=== PATIENT | male | born 1965 | race Caucasian/White ===

== ENCOUNTER 2020-04-05 13:32 | Outpatient (REF) | payer SELFPAY | END 2020-04-05 13:33 | disposition home or self-care (01) | LOC: HO.HAP 13:32 | PROVIDERS: Visit Provider Internal Medicine Endocrinology, Diabetes & Metabolism | DX: Z46.1 Encounter for fitting and adjustment of hearing aid (principal); H90.3 Sensorineural hearing loss, bilateral | CPT/HCPCS: V5267 ==

== ENCOUNTER 2020-04-28 15:10 | Outpatient (REF) | payer SELFPAY | END 2020-04-28 15:11 | disposition home or self-care (01) | LOC: HO.HAP 15:10 | PROVIDERS: Visit Provider Internal Medicine Endocrinology, Diabetes & Metabolism | DX: Z13.89 Encounter for screening for other disorder (principal) ==

== ENCOUNTER 2021-10-31 10:43 | Outpatient (REF) | payer SELFPAY | END 2021-10-31 10:44 | disposition home or self-care (01) | LOC: HO.HAP 10:43 | PROVIDERS: Visit Provider Internal Medicine Endocrinology, Diabetes & Metabolism | DX: Z13.89 Encounter for screening for other disorder (principal) ==

== ENCOUNTER 2021-11-23 14:29 | Outpatient (REF) | payer SELFPAY | END 2021-11-23 14:30 | disposition home or self-care (01) | LOC: HO.HAP 14:29 | PROVIDERS: Visit Provider Internal Medicine Endocrinology, Diabetes & Metabolism | DX: Z13.89 Encounter for screening for other disorder (principal) ==

== ENCOUNTER 2021-12-16 07:54 | Outpatient (REF) | payer SELFPAY | END 2021-12-16 07:55 | disposition home or self-care (01) | LOC: HO.HAP 07:54 | PROVIDERS: Visit Provider Internal Medicine Endocrinology, Diabetes & Metabolism | DX: Z46.1 Encounter for fitting and adjustment of hearing aid (principal); H90.3 Sensorineural hearing loss, bilateral | CPT/HCPCS: V5014 ==

== ENCOUNTER 2022-06-02 08:30 | Outpatient (REF) | payer OTHER, SELFPAY | END 2022-06-02 08:31 | disposition home or self-care (01) | LOC: HO.SH 08:30 | PROVIDERS: Visit Provider Physician Assistant Medical | DX: Z01.118 Encounter for examination of ears and hearing with other abnormal findings (principal); H90.3 Sensorineural hearing loss, bilateral | CPT/HCPCS: 92557; 92567 ==

== ENCOUNTER 2023-05-16 14:14 | Outpatient (REF) | payer SELFPAY ==
--- NOTE | 2023-05-17 08:57 | MHC.AU.HA3 ---
Hearing Instrument Follow-Up- Binaural Date of Visit: 05/16/22 Linux System Administrator Used: Right Ear: Make, Model, Color, Serial Number: Shamika CROS [id number] SN: [id number] Color: Sand Beige Hand Gluer And Slicer Repair Warranty: 05/12/2026 Hand Gluer And Slicer Loss and Damage Warranty: 05/12/2026 Battery Size: 13 Director Of Sustainability/Slim Tube: Earmold/Dome/CShell/SlimTip:CROS Tip w/ size 2 wire SN: [id number] Warranty: 05/14/2023 Type of Wax Guard: N/A Left Ear: Make, Model, Color, Serial Number: Shamika Andrewseo [id number] SN: [id number] Color: Sand Beige Hand Gluer And Slicer Repair Warranty: 05/15/2026 Hand Gluer And Slicer Loss and Damage Warranty: 05/15/2026 Battery Size: 13 Earmold/Dome/CShell/SlimTip: cShell with size 2 wire/UP hospice spiritual care coordinator SN: [id number] Warranty: 05/14/2023 Type of Wax Guard: Cerustop Follow-Up Summary: Papito returned to re-attempt fitting with his remade c-shell, which was changed to a P hospice spiritual care coordinator so it could be made smaller. He still found this size unacceptable; discussed that his original c-shell was an S hospice spiritual care coordinator which will not give sufficient amplification, and given that he reports difficulty hearing with his older aids, reducing power further is not advised. He will not wear the c-shell as it is currently made. Called Shamika with Papito in the room to discuss this issue and see if they had any other recommendations based on scan on file etc. We will try an M hospice spiritual care coordinator, Papito agreed that he would not want to go down to an S and understands the limitations an M might have. Sent for remake, will call to reschedule 1 hour fitting once it arrives. Recommendations: Recommendations: Schedule 1 hour HAF once c-shell remake arrives. Diagnosis Code(s): Primary Diagnosis: H90.3 Bilateral Sensorineural Hearing Loss Signature: Provider: Libby Bee, [facility]
== END 2023-05-16 14:15 | disposition home or self-care (01) ==
LOC: HO.HAP 14:14
PROVIDERS: Visit Provider Internal Medicine Endocrinology, Diabetes & Metabolism
DX: Z13.89 Encounter for screening for other disorder (principal)

== ENCOUNTER 2023-06-14 14:19 | Outpatient (REF) | payer SELFPAY ==
--- NOTE | 2023-06-15 08:07 | MHC.AU.HA3 ---
Hearing Instrument Follow-Up- Binaural Date of Visit: 06/14/23 Right Ear: Make, Model, Color, Serial Number: Shamika CROS P-[id number] SN: [id number] Color: Sand Beige Trust Clerk Repair Warranty: 05/12/2026 Trust Clerk Loss and Damage Warranty: 05/12/2026 [facility] Service Plan: 05/31/2024 Battery Size: 13 Earmold/Dome/CShell/SlimTip:CROS Tip w/ size 2 wire SN: [id number] Warranty: 05/14/2023 Type of Wax Guard: N/A Dispensed By: [facility] Date of Fittin05/31/23 Left Ear: Make, Model, Color, Serial Number: Shamika Audeo [id number] SN: [id number] Color: Sand Beige Trust Clerk Repair Warranty: 05/15/2026 Trust Clerk Loss and Damage Warranty: 05/15/2026 [facility] Service Plan: 05/31/2024 Battery Size: 13 Earmold/Dome/CShell/SlimTip: cShell with size 2 wire/M floor supervisor SN: [id number] Warranty: 11/22/2023 Type of Wax Guard: Cerustop Dispensed By: [facility] Date of Fittin05/31/23 Follow-Up Summary: Reports the new aid/ CROS are working better for him than his old pair. Molds are comfortable. Has used VC as needed. No specific concerns needing adjustment at this time. Recommendations: Recommendations: Hearing instrument follow-up or maintenance as needed. Please contact our clinic with any questions or concerns. Diagnosis Code(s): Primary Diagnosis: H90.3 Bilateral Sensorineural Hearing Loss Signature: Provider: Sandrine Sanchez, CCC-A
== END 2023-06-14 14:20 | disposition home or self-care (01) ==
LOC: HO.HAP 14:19
PROVIDERS: PCP Physician Assistant Medical; Visit Provider Physician Assistant Medical
DX: Z13.89 Encounter for screening for other disorder (principal)

== ENCOUNTER 2024-07-18 10:50 | Outpatient (REF) | payer SELFPAY ==
--- OUTSIDE RECORDS SUMMARY | 2024-07-18 12:27 | XMS_ITS | Clinical Summary ---
Author Organization [facility] [address] [place] [address] [place] [phone] Phone Care Team Providers Care Renovator Machine Operator Name Role Phone Lawrence Gasca Primary Care Provider [phone] Allergies No known active allergies Medications losartan (COZAAR) 25 mg tablet Take 1 tablet (25 mg total) by mouth 1 (one) time each day. 06/12/2023 Active allopurinoL (ZYLOPRIM) 100 mg tablet Take 1 tablet (100 mg total) by mouth 1 (one) time each day. 06/12/2023 Active simvastatin (ZOCOR) 40 mg tablet Take 1 Tablet by mouth at bedtime. 06/12/2023 Active omeprazole (PriLOSEC) [address] capsule Take 1 capsule (20 mg total) by mouth 1 (one) time each day. 06/12/2023 Active Active Problems Problem Noted Date Diagnosed Date Erythrocytosis 07/17/2018 Overview (03/19/2024): Dr. 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 Erosive esophagitis 03/18/2014 Overview (03/19/2024): EGD and bx 03/17/2014. ? GERD; ? EOE---see path report. Dysplastic nevi 05/25/2011 Overview (03/19/2024): Dysplastic nevi 05/18 right lower back & middle of upper back (moderate atypia) Mixed hyperlipidemia 09/05/2007 Hearing loss 04/26/2007 Overview (03/19/2024): Chronic hearing loss on right, sudden hearing loss left, 04/2007 Hypertension 04/26/2007 Lung mass 04/26/2007 Overview (03/19/2024): 5-mm noncalcified right lower lobe nodule, others smaller nodules Renal cyst 04/26/2007 Overview (03/19/2024): 8 x 7 cm right renal cyst, CT, 01/31/2006 Retinal vein occlusion 04/26/2007 Overview (03/19/2024): Right branch retinal vein occlusion, 12/2005 Encounters Date Type Department Care Team Description 07/09/2024 2:45 PM EST Office Visit Adult Medicine [address] [phone] Sharad Kaur MD Primary hypertension (Primary Dx); Need for prophylactic vaccination and inoculation against influenza; Vitreous floaters of right eye; History of retinal vein occlusion 07/08/2024 Telephone Adult Medicine [address] [phone] Lawrence Gasca PA Hypertension 07/07/2024 Telephone Adult Medicine [address] [phone] Lawrence Gasca PA ED Follow-up 07/04/2024 Telephone Adult Medicine [address] [phone] Lawrence Gasca PA Hypertension; heachache 05/19/2024 1:01 PM EST - 05/19/2024 11:59 PM EST Hospital Encounter Radiology Department - [address] [phone] Routine general medical examination at a health care facility; Diplopia; Vertigo; Screening for malignant neoplasm of colon; Poe's esophagus with dysplasia; Gout, unspecified cause, unspecified chronicity, unspecified site; Primary hypertension; Mixed hyperlipidemia Discharge Disposition: Home or Self Care 04/22/2024 3:00 PM EST Office Visit [address] [phone] Lawrence Gasca PA Routine general medical examination at a health care facility (Primary Dx); COVID-19; Diplopia; Vertigo; Screening for malignant neoplasm of colon; Poe's esophagus with dysplasia; Gout, unspecified cause, unspecified chronicity, unspecified site; Primary hypertension; Mixed hyperlipidemia from Last 3 Months Immunizations Name Administration Dates Next Due Influenza Quadravalent, MDCK , 0.5ml, preservative free (Flucelvax) 6mo and older 06/12/2023,03/03/2022,04/21/2021,2019,05/10/2018 Influenza trivalent, 0.5mL, preservative free (Fluarix; FluLaval; Fluzone) ages 6mo and older (Afluria) 3 years and older 02/18/2016 Influenza trivalent, MDCK, 0 .5mL, preservative free (Flucelvax) 6mo and older 07/09/2024 Td Tetanus diptheria (Tdvax) 7yo and older 04/21/2021,10/04/2007 Surgical History Surgery Date Site/Laterality Comments ESOPHAGOGASTRODUODENOSCOPY 03/17/2014 PROCEDURE: IA EGD TRANSORAL BIOPSY SINGLE/MULTIPLE; COMMENT: esophageal bx: Increased eosinophils, erosion, Poe's without dysplasia. Medical History Medical History Date Comments Hearing loss 04/26/2007 DX:Hearing loss; COMMENT: Chronic hearing loss on right, sudden hearing loss left, 04/2007 Hypertension 04/26/2007 DX:Hypertension Retinal vein occlusion (CMS/HCC) 04/26/2007 DX:Retinal vein occlusion; COMMENT: Right branch retinal vein occlusion, 12/2005 Historical Medical DX 04/26/2007 DX:Pulmona ry nodule; COMMENT: 5-mm noncalcified right lower lobe nodule, others smaller nodules Renal cyst 04/26/2007 DX:Renal cyst; C OMMENT: 8 x 7 cm right renal cyst, CT, 01/31/2006 Poe's esophagus 03/18/2014 DX:Poe's esophagus; COMMENT: EGD and bx 03/17/2014, no dysplasia. Erosive esophagitis 03/18/2014 DX:Erosive e sophagitis; COMMENT: EGD and bx 03/17/2014. Family History Medical History Relation Name Comments Heart attack Father age 45 Hypertension Mother Relation Name Status Comments Father Mother Social History Tobacco Use Types Packs/Day Years Used Date Smoking Tobacco: Never Smokeless Tobacco: Never Tobacco Cessation:Counseling Given: Not Answered Alcohol Use Standard Drinks/Week Comments No 0 (1 standard drink = 0.6 oz pur e alcohol) none Housing Instability Answer Date Recorde d Are you worried that in the next 2 months you may not have stable housing? No 07/09/2024 Food Access & Nutrition Answer Date Rec orded Do you have access to a vari ety of food including fruits and vegetables? Yes 07/09/2024 Health Literacy Answer Date Recorded How often do you need to hav e someone help you when you read instructions, pamphlets, or other written material from your doctor or pharmacy? Never 07/09/2024 Caregiver: How often do you need to have someone help you when you read instructions, pamphlets, or other written material from your doctor or pharmacy? Not on file 07/09/2024 Financial Risk Answer Date Recorded How hard is it for you to pa y for the very basics like food, housing, medical care, and air conditioning / heating? Not very hard 07/09/2024 Transportation Answer Date Recorded Has the lack of transportati on kept you from meetings, work, or from getting things needed for daily living? No Has the lack of transportati on kept you from medical appointments or from getting medications? No 07/09/2024 Social Isolation Answer Date Recorded How often do you feel lonely or isolated from th ose around you? Never 07/09/2024 Food Risk Answer Date Recorded Within the past 12 months we worried whether our food would run out before we got money to buy more. Never true 07/09/2024 Within the past 12 months th e food we bought just didn't last and we didn't have money to get more. Never true 07/09/2024 Dependent Care Answer Date Recorded Do you need help finding or paying for care for your loved ones. For example, children's entertainer or elderly care for an older adult? No 07/09/2024 Education Answer Date Recorded Do you think completing more education or training, like finishing a GED, going to college, or learning a trade, would be helpful for you? No 07/09/2024 Employment and Income Answer Date Recor ded During the last four weeks, have you been actively looking for work? No 07/09/2024 Living Situation Answer Date Recorded What is your living situation? 0 07/09/2024 Sex and Gender Information Value Date Recorded Sex Assigned at Not on file Legal Sex Male 8:14 AM EST Gender Identity Not on file Sexual Orientation Not on file Obstetrics History Last Filed Vital Signs Vital Sign Reading Time Taken Comments Blood Pressure 134/73 07/09/2024 2:40 PM EST Pulse 75 07/09/2024 2:40 PM EST Temperature 36.4 ??C (97.5 ??F) 07/09/2024 2:40 PM ES T Respiratory Rate 16 07/09/2024 2:40 PM EST Oxygen Saturation - - Inhaled Oxygen Concentration - - Weight 77.1 kg (170 lb) 07/09/2024 2:40 PM EST Height 167.6 cm (5' 6 ) 07/09/2024 2:40 PM EST Body Mass Index 27.44 07/09/2024 2:40 PM EST Plan of Treatment Health Maintenance Due Date Last Done Comments Pneumococcal Vaccine: 50+ Years (1 of 2 - PCV) 12/13/1982 Pneumococcal Vaccine: Pediatrics (0 to 5 Years) and At-Risk Patients (6 to 64 Years) (1 of 2 - PCV) 12/13/1982 Zoster Vaccines (1 of 2) 12/13/1982 HIV Screening 04/15/2022 Hepatitis C Screening 04/15/2022 COVID-19 Vaccine ( season) 2024 06/20/2021, 09/25/2020, 09/04/2020 Hypertension/CHF/CAD Annual BMP Blood Test 05/30/2024 05/30/2023 Depression Screening 07/09/2025 07/09/2024 Social Influencers of Health Screening 07/09/2025 07/09/2024 Colorectal Cancer Screening: FIT-DNA (Cologuard) 05/19/2027 05/19/2024 Cholesterol Screening (Lipid Panel) 05/30/2028 05/30/2023 DTaP,Tdap,and Td Vaccines (3 - Td or Tdap) 04/21/2031 04/21/2021, 10/04/2007 RSV Immunization Patients 60+ Years Old (1 - 1-dose 75+ series) 12/13/2038 Influenza Vaccine Completed 07/09/2024, , 03/03/2022, Additional history exists HIB Vaccines Aged Out No longer eligi ble based on patient's age to complete this topic HPV Vaccines Aged Out No longer eligi ble based on patient's age to complete this topic Hepatitis A Vaccines Aged Out No long er eligible based on patient's age to complete this topic Hepatitis B Vaccines Aged Out No long er eligible based on patient's age to complete this topic IPV Vaccines Aged Out No longer eligi ble based on patient's age to complete this topic MMR Vaccines Aged Out No longer eligi ble based on patient's age to complete this topic Meningococcal ACWY Vaccine Aged Out N o longer eligible based on patient's age to complete this topic Meningococcal B Vacine Aged Out No lo nger eligible based on patient's age to complete this topic RSV Immunization Patients Under 20 months Aged Out No longer eligible based on patient's age to complete this topic Varicella Vaccines Aged Out No longer eligible based on patient's age to complete this topic Procedures Procedure Name Priority Date/Time Associated Diagnosis Comments MR BRAIN WO AND W CONTRAST Routine 05/19/2024 2:08 PM EST Routine general medical examination at a health care facility Diplopia Vertigo Screening for malignant neoplasm of colon Poe's esophagus with dysplasia Gout, unspecified cause, unspecified chronicity, unspecified site Primary hypertension Mixed hyperlipidemia LAB COLOGUARD?? COLON CANCER SCREEN Routine 05/19/2024 9:50 AM EST Routine general medical examination at a health care facility Diplopia Vertigo Screening for malignant neoplasm of colon Poe's esophagus with dysplasia Gout, unspecified cause, unspecified chronicity, unspecified site Primary hypertension Mixed hyperlipidemia POC INFLUENZA A/B Routine 04/22/2024 4:0 6 PM EST Routine general medical examination at a health care facility COVID-19 Diplopia Vertigo Screening for malignant neoplasm of colon Poe's esophagus with dysplasia Gout, unspecified cause, unspecified chronicity, unspecified site Primary hypertension Mixed hyperlipidemia POC RAPID [id number], MOLECULAR Routine 04/22/2024 4:06 PM EST Routine general medical examination at a health care facility COVID-19 Diplopia Vertigo Screening for malignant neoplasm of colon Poe's esophagus with dysplasia Gout, unspecified cause, unspecified chronicity, unspecified site Primary hypertension Mixed hyperlipidemia ANNUAL BMP BLOOD TEST Routine 05/30/2023 LIPID PANEL Routine 05/30/2023 from Last 3 Months or Most Recently Relevant to Health Maintenance Results * MR Brain wo and w Contrast (05/19/2024 2:08 PM EST) Anatomical Region Laterality Modality Head and Neck Magnetic Resonan ce 05/19/2024 8:26 PM EST Impressions 05/19/2024 8:43 PM EST Impression: 1. Unremarkable MRI of the brain. 2. No abnormal intracranial enhancement. 3. Mucosal thickening within the paranasal sinuses. -------- FINAL REPORT -------- Dictated By: Carmen Cross Dictated Date: 05/19/2024 20:26 ET Assigned Physician: Carmen Cross Reviewed and Electronically Signed By: Carmen Cross Signed Date: 05/19/2024 20:43 ET Workstation ID: [id number] Transcribed By: Self Edit Transcribed Date: 05/19/2024 20:26 ET Narrative 05/19/2024 8:43 PM EST MRI BRAIN WITH AND WITHOUT CONTRAST Clinical Statement: Diplopia Dizziness, non-specific diplopia, vertigo Comparison: ??None Technique: ??Multiplanar, multisequence MR images of the brain were obtained prior to and following the uneventful intravenous administration of 15 mL of Dotarem Findings: ??There is no evidence of diffusion restriction. ??No intracranial hemorrhage. Minimal white matter hyperintensities within the periventricular and supraventricular region consistent with microvascular ischemic changes. The craniocervical junction is normal. ??The ventricular system is normal in size and morphology. ??The basilar cisterns are normal. ??There is no evidence of abnormal intracranial enhancement. ??The orbits and globes are within normal limits. ??Mucosal thickening within the paranasal sinuses. ??Trace fluid within the right mastoids. Procedure Note Carmen Cross MD - 05/19/2024 MRI BRAIN WITH AND WITHOUT CONTRAST Clinical Statement: Diplopia Dizziness, non-specific diplopia, vertigo Comparison: None Technique: Multiplanar, multisequence MR images of the brain wereobtained prior to and following the uneventful intravenous administrationof 15 mL of Dotarem Findings: There is no evidence of diffusion restriction. No intracranialhemorrhage. Minimal white matter hyperintensities within theperiventricular and supraventricular region consistent with microvascularischemic changes. The craniocervical junction is normal. The ventricularsystem is normal in size and morphology. The basilar cisterns are normal.There is no evidence of abnormal intracranial enhancement. The orbitsand globes are within normal limits. Mucosal thickening within theparanasal sinuses. Trace fluid within the right mastoids. IMPRESSION: Impression: 1. Unremarkable MRI of the brain. 2. No abnormal intracranial enhancement. 3. Mucosal thickening within the paranasal sinuses. -------- FINAL REPORT -------- Dictated By: Carmen Cross Dictated Date: 05/19/2024 20:26 ET Assigned Physician: Carmen Cross Reviewed and Electronically Signed By: Carmen Cross Signed Date: 05/19/2024 20:43 ET Workstation ID: [id number] Transcribed By: Self Edit Transcribed Date: 05/19/2024 20:26 ET Lawrence MICHAELS [facility] [place] PROCEDURES Final Result * Cologuard?? colon cancer screening (05/19/2024 9:50 AM EST) COLOGUARD Negative Negative [facility] Comment: NEGATIVE TEST RESULT. A negative Cologuard result indicates a low likelihood that a colorectal cancer (CRC) or advanced adenoma (adenomatous polyps with more advanced pre-malignant features) ??is present. The chance that a person with a negative Cologuard test has a colorectal cancer is less than 1 in 1500 (negative predictive value >99.9%) or has an ??advanced adenoma is less than ??5.3% (negative predictive value 94.7%). These data are based on a prospective cross-sectional study of 10,000 individuals at average risk for colorectal cancer who were screened with both Cologuard and colonoscopy. (Veronique Shetty et al, N Engl J Med 2014;370(14):1286- 1297) The normal value (reference range) for this assay is negative. COLOGUARD RE-SCREENING RECOMMENDATION: Periodic colorectal cancer screening is an important part of preventive healthcare for asymptomatic individuals at average risk for colorectal cancer. ??Following a negative Cologuard result, the [place] [employer] and U.S. Multi-Society Task Force screening guidelines recommend a Cologuard re-screening interval of 3 years. References: [place] [employer] Guideline for Colorectal Cancer Screening: https://www.cancer.org/cancer/twvmh-mzhclj-idyjqa/iuuftgpaj-aksxeajfu-fcyuqhd/ac s-rec ommendations.html.; Alexandro DK, Sundeep NEWMAN, Deborah DavisK, Colorectal Cancer Screening: Recommendations for Physicians and Patients from the U.S. Multi-Society Task Force on Colorectal Cancer Screening , Am J Gastroenterology 2017; 112:6615-7663. TEST DESCRIPTION: Composite algorithmic analysis of stool DNA-biomarkers with hemoglobin immunoassay. ?? Quantitative values of individual biomarkers are not reportable and are not associated with individual biomarker result reference ranges. Cologuard is intended for colorectal cancer screening of adults of either sex, 45 years or older, who are at average-risk for colorectal cancer (CRC). Cologuard has been approved for use by the U.S. FDA. The performance of Cologuard was established in a cross sectional study of average-risk adults aged 50-84. Cologuard performance in patients ages 45 to 49 years was estimated by sub-group analysis of near-age groups. Colonoscopies performed for a positive result may find as the most clinically significant lesion: colorectal cancer [4.0%], advanced adenoma (including sessile serrated polyps greater than or equal to 1cm diameter) [20%] or non- advanced adenoma [31%]; or no colorectal neoplasia [45%]. These estimates are derived from a prospective cross-sectional screening study of 10,000 individuals at average risk for colorectal cancer who were screened with both Cologuard and colonoscopy. (Veronique Houser al, N Engl J Med 2014;370(14):0226-1278.) Cologuard may produce a false negative or false positive result (no colorectal cancer or precancerous polyp present at colonoscopy follow up). A negative Cologuard test result does not guarantee the absence of CRC or advanced adenoma (pre-cancer). The current Cologuard screening interval is every 3 years. ([place] [employer] and U.S. Multi-Society Task Force). Cologuard performance data in a 10,000 patient pivotal study using colonoscopy as the reference method can be accessed at the following location: www.[employer]eebrite/results. Additional description of the Cologuard test process, warnings and precautions can be found at www.cologuard.Visual Unity. Stool 05/19/2024 9:50 AM EST 05/20/2024 11:01 AM EST Lawrence MICHAELS LAB MOLECULAR DIAGNOSTICS ORDERABLES Final Result Performing Organization Address City/State/[facility] Co de Phone Number [employer] [address] [place] [address] [employer] [address] [place] [address] * (ABNORMAL) Poc Rapid [id number], MOLECULAR (04/22/2024 4:06 PM EST) COVID-19/SARS- COV-2 Rapid POC Positive(A ) Negative Internal Control Pass Yes Yes Swab Nasopharyngeal structure / Unknown 04/22/2024 4:06 PM EST us Lawrence MICHAELS POINT OF CARE TEST ENTER/ EDIT ORDERABLES Final Result * (ABNORMAL) POC Influenza A/B manually resulted (04/22/2024 4:06 PM EST) Pathologist [facility] Rapid Influenza A AGN POC Negative Negative Rapid Influenza B AGN POC Negative Negative Internal Control Pass Yes Yes Swab 04/22/2024 4:06 PM EST Lawrence MICHAELS POINT OF CARE TEST ENTER/ EDIT ORDERABLES Final Result * Annual BMP Blood Test (05/30/2023) Pathologist [facility] Annual BMP Blood Test abstracted Historical Provider HEALTH MAINTENANCE Final Result * Lipid panel (05/30/2023) [facility] LDL/HDL Ratio 3 0 - 4 Triglycerides 67 0 - 150 mg/dL Cholesterol 162 0 - 200 mg/dL HDL 53 >=40 mg/dL LDL Cholesterol 96 0 - 100 mg/dL Blood Venous blood specimen / Unknown Historical Provider LAB BLOOD ORDERABLES Patsy l Result from Last 3 Months or Most Recently Relevant to Health Maintenance Insurance [facility] Care Teams Renovator Machine Operator Relationship Specialty Start Date End Date Lawrence Gasca PA [address] [place] [id number] PCP - General Internal Medicine 04/22/24
--- OUTSIDE RECORDS SUMMARY | 2024-07-18 12:28 | XMS_ITS | Encounter Summary ---
Author Organization [facility] Address [address] [place] [address] Care Team Providers Care Assessment Manager Name Role Phone Lawrence Gasca Primary Care Provider [phone] [phone] Reason for Referral * Consultation (Routine) - Pending Review Specialty Diagnoses / Procedures Referred By Warren santo Referred To Contact Ophthalmology Diagnoses Vitreous floaters of right eye Sharad Kaur MD [address] [place] [address] Phone: tel: fax: Referral ID Status Reason Start Date Expiration Date Visits Requested Visits Authorized [id number] Pending Review Specialty Services Required 07/09/2024 07/09/2025 1 1 Reason for Visit * Reason Comments Follow-up Er follow up Encounter Details Date Type Department Care Team (Late st Contact Info) Description 07/09/2024 2:45 PM EST Office Visit Adult Medicine [address] [address] Sharad Kaur MD [address] [place] [phone] Primary hypertension (Primary Dx); Need for prophylactic vaccination and inoculation against influenza; Vitreous floaters of right eye; History of retinal vein occlusion Social History Tobacco Use Types Packs/Day Years [...] on file Sexual Orientation Not on file documented as of this encounter Last Filed Vital Signs Vital Sign Reading [...] Mass Index 27.44 07/09/2024 2:40 PM EST documented in this encounter Progress Notes * Estela Conde MA - 07/09/2024 2:45 PM EST Social Influencers of Health Who provided answers?: Self Within the past 12 months we worried whether our food would run out before we got money to buy more.: Never true Within the past 12 months the food we bought just didn't last and we didn't have money to get more.: Never true How hard is it for you to pay for the very basics like food, housing, medical care, and air conditioning / heating?: Not very hard Are you worried that in the next 2 months you may not have stable housing?: No Do you have access to a variety of food including fruits and vegetables?: Yes Has the lack of transportation kept you from meetings, work, or from getting things needed for daily living?: No Has the lack of transportation kept you from medical appointments or from getting medications?: No How often do you feel lonely or isolated from those around you?: Never How often do you need to have someone help you when you read instructions, pamphlets, or other written material from your doctor or pharmacy?: Never Depression Screening Will the patient answer the depression risk questions?: Yes Over the last 2 weeks, how often have you been bothered by little interest or pleasure in doing things?: Not at all Over the last 2 weeks, how often have you been bothered by feeling down, depressed, or hopeless?: Not at all Depression Risk: 0 * Estela Conde MA - 07/09/2024 2:45 PM EST INFLUENZA VACCINE The patient acknowledges that they will be receiving the Influenza (Flu) vaccine today: yes Flu vaccine formulation is: Flucelvax (preservative free): Patient denies allergy to previous flu vaccine. yes Immunization tab reviewed: Patient acknowledges they have NOT received a flu vaccine for the . yes Denies history of Guillain-Mcalester Syndrome (severe muscle weakness). yes Acknowledges reviewing the VIS Seasonal Flu (copy made available). yes Patient Denies moderate or severe illness or fever of >100 degrees F. yes Agrees to wait in the office/car for 20 minutes after receiving the influenza injection. yes No restriction for Influenza vaccine administered IM See Imm/Inj tab. Electronically signed by: Estela Conde MA 07/09/2024 2:48 PM EST * Sharad Kaur MD - 07/09/2024 2:45 PM EST SUBJECTIVE: Papito Mireles is a 58 y.o. male who presents today for Chief Complaint Patient presents with Follow-up Er follow up HPI: Patient presenting for ER discharge follow-up. Patient states that he checked his blood pressure athome and he noted a reading of 200/100. He went to the [facility] and his blood pressure was normal today. He did have a headache so did have a brief workup in the ER. CBC, CMP were unremarkable.CT scan of the brain as well as CT angio head and neck were obtained which were unremarkable. Patient has history of right branch retinal vein occlusion in 2006. Has not seen an width stripper for many years. Does complain of occasional floaters in both eyes for many years but states that the floaters have increased over the past 1 months or so. Has no vision loss. Current Meds: Current Outpatient Medications: allopurinoL (ZYLOPRIM) 100 mg tablet, Take 1 tablet (100 mg total) by mouth 1 (one) time each day.,Disp: , Rfl: losartan (COZAAR) 25 mg tablet, Take 1 tablet (25 mg total) by mouth 1 (one) time each day., Disp: , Rfl: omeprazole (PriLOSEC) [address] capsule, Take 1 capsule (20 mg total) by mouth 1 (one) time each day., Disp: , Rfl: simvastatin (ZOCOR) 40 mg tablet, Take 1 Tablet by mouth at bedtime., Disp: , Rfl: Allergies: No Known Allergies Immunizations: Immunization History Administered Date(s) Administered Influenza Quadravalent, MDCK, 0.5ml, preservative free (Flucelvax) 6mo and older 05/10/2018, 01/15/2020, 04/21/2021, 03/03/2022, 06/12/2023 Influenza trivalent, 0.5mL, preservative free (Fluarix; FluLaval; Fluzone) ages 6mo and older (Afluria) 3 years and older 02/18/2016 Influenza trivalent, MDCK, 0.5mL, preservative free (Flucelvax) 6mo and older 07/09/2024 [employer] SARS-CoV-2 COVID-19, mRNA, LNP-S, preservative free 09/04/2020, 09/25/2020, 06/20/2021 Td Tetanus diptheria (Tdvax) 7yo and older 10/04/2007, 04/21/2021 Active Problems: Patient Active Problem List Diagnosis Poe's esophagus Dysplastic nevi Erosive esophagitis Erythrocytosis Gout Hearing loss Hypertension Lung mass Mixed hyperlipidemia Nephrolithiasis Renal cyst Retinal vein occlusion (CMS/HCC) HISTORY: Past Medical History: Diagnosis Date Poe's esophagus 03/18/2014 DX:Poe's esophagus; COMMENT: EGD and bx 03/17/2014, no dysplasia. Erosive esophagitis 03/18/2014 DX:Erosive esophagitis; COMMENT: EGD and bx 03/17/2014. Hearing loss 04/26/2007 DX:Hearing loss; COMMENT: Chronic hearing loss on right, sudden hearing loss left, 04/2007 Historical Medical DX 04/26/2007 DX:Pulmonary nodule; COMMENT: 5-mm noncalcified right lower lobe nodule, others smaller nodules Hypertension 04/26/2007 DX:Hypertension Renal cyst 04/26/2007 DX:Renal cyst; COMMENT: 8 x 7 cm right renal cyst, CT, 01/31/2006 Retinal vein occlusion (CMS/HCC) 04/26/2007 DX:Retinal vein occlusion; COMMENT: Right branch retinal vein occlusion, 12/2005 Past Surgical History: Procedure Laterality Date ESOPHAGOGASTRODUODENOSCOPY 03/17/2014 PROCEDURE: DE EGD TRANSORAL BIOPSY SINGLE/MULTIPLE; COMMENT: esophageal bx: Increased eosinophils, erosion, Poe's without dysplasia. Family History Problem Relation Name Age of Onset Heart attack Father age 45 Hypertension Mother Social History Socioeconomic History Marital status: Single Spouse name: Not on file Number of children: 0 Years of education: Not on file Highest education level: Not on file Occupational History Not on file Tobacco Use Smoking status: Never Smokeless tobacco: Never Substance and Sexual Activity Alcohol use: No Comment: none Drug use: No Comment: none Sexual activity: Not Currently Comment: no kids Other Topics Concern Not on file Social History Narrative Not on file ROS: GENERAL: Negative for malaise, significant weight loss and fever RESPIRATORY: No cough, wheezing or shortness of breath CARDIOVASCULAR: Negative for chest pain, leg swelling and palpitations GI: Negative for abdominal discomfort, changes in bowel habits, blood in stool or black stools VITAL SIGNS Vitals: 07/09/24 1440 BP: 134/73 Pulse: 75 Resp: 16 Temp: 36.4 ??C (97.5 ??F) TempSrc: Temporal Weight: 77.1 kg (170 lb) Height: 1.676 m (66 ) Body mass index is 27.44 kg/m??. Body surface area is 1.87 meters squared. PHYSICAL EXAM: Blood pressure 134/73, pulse 75, temperature 36.4 ??C (97.5 ??F), temperature source Temporal, resp. rate 16, height 1.676 m (66 ), weight 77.1 kg (170 lb). Body mass index is 27.44 kg/m??. Plan is deferred until next visit APPEARANCE: Alert and in no acute distress HEART: RRR with normal S1 and S2, no murmurs, no gallops, no JVD appreciated CHEST: non-tender LUNG: clear to auscultation bilaterally ASSESSMENT/PLAN: Papito was seen today for follow-up. Diagnoses and all orders for this visit: Primary hypertension (Primary) Need for prophylactic vaccination and inoculation against influenza - Influenza trivalent, MDCK, 0.5mL, preservative free (Flucelvax) 6mo and older Vitreous floaters of right eye - Ambulatory referral to Ophthalmology; Future History of retinal vein occlusion Plan Informed the patient that his blood pressure is within goal in the office today as well as was appropriate in the ER. Continue losartan 25 mg for now. Given his history of vision floaters along with history of retinal vein occlusion, advised to follow-up with ophthalmology. Referral placed. Influenza vaccine given in the office today. ER lab results, CT scan of the brain, CT angio head and neck results reviewed and discussed with the patient. Follow up if symptoms worsen or fail to improve, for Next scheduled follow-up. Orders Placed This Encounter Procedures Influenza trivalent, MDCK, 0.5mL, preservative free (Flucelvax) 6mo and older Ambulatory referral to Ophthalmology No results found for this or any previous visit (from the past 4 weeks). Sharad Kaur MD documented in this encounter Plan of Treatment Scheduled Referrals Name Type Priority Associated Diagnoses Order Schedule Ambulatory referral to Ophthalmology Outpatient Referral Routine Vitreous floaters of right eye 1 Occurrences starting 07/09/2024 until 07/09/2025 documented as of this encounter Visit Diagnoses Diagnosis Primary hypertension- Primary Unspecified essential hypertension Need for prophylactic vaccination and inoculation against influenza Vitreous floaters of right eye History of retinal vein occlusion documented in this encounter Orders Immunization/Injection Count Last Ordered Date First Ordered Date INFLUENZA TRIVALENT, MDCK, 0 .5ML, PRESERVATIVE FREE (FLUCELVAX) 6MO AND OLDER 1 07/09/2024 documented in this encounter Additional Health Concerns Assessment Noted Time PHQ-9 Depression Total Score: 0 07/10/19 25 2:41 PM EST documented as of this encounter Care Teams Assessment Manager Relationship Specialty Start Date End Date Lawrence Gasca PA [address] [place] [id number] PCP - General Internal Medicine 04/22/24 documented as of this encounter
--- OUTSIDE RECORDS SUMMARY | 2024-07-18 12:28 | XMS_ITS | Encounter Summary ---
Author Organization [facility] Address [address] [place] [address] Care Team Providers Care Sql Architect Name Role Phone Lawrence Gasca Primary Care Provider [phone] Reason for Visit * Reason Onset Date Comments Hypertension 07/08/2024 Encounter Details Date Type Department Care Team (Late st Contact Info) Description 07/08/[address] [facility] [address] [place] [address] Lawrence Gasca PA [address] [place], [place] [phone] Hypertension Social History Tobacco Use Types Packs/Day Years Used Date Smoking Tobacco: Never Smokeless Tobacco: Never Alcohol Use Standard Drinks/Week Comments No 0 [...] care for your loved ones. For example, child development consultant or elderly care for an older adult? [...] on file documented as of this encounter Progress Notes * Ira Beck MA - 07/08/2024 10:52 AM EST Called and spoke to Papito, he'll be in tomorrow 07/09/2024 at 2:[address] Kaur at 2:45. * NICK amin - 07/08/2024 9:50 AM EST Pt is calling would like a sooner appt then Sunday pt would like to speak to someone about this issue documented in this encounter Plan of Treatment Not on file documented as of this encounter Visit Diagnoses Not on filedocumented in this encounter Care Teams Sql Architect Relationship Specialty Start Date End Date Lawrence Gasca PA [address] [place] [address] PCP - General Internal Medicine 04/22/24 documented as of this encounter
--- OUTSIDE RECORDS SUMMARY | 2024-07-18 12:28 | XMS_ITS | Encounter Summary ---
Author Organization [facility] Address [address] [place] [address] Care Team Providers Care Screen Print Operator Name Role Phone Lawrence Gasca Primary Care Provider [phone] Reason for Visit * Reason Onset Date Comments ED Follow-up 07/07/2024 Encounter Details Date Type Department Care Team (Late st Contact Info) Description 07/07/[address] [facility] [address] [place] [address] Lawrence Gasca PA [address], [place] [phone] ED Follow-up Social History Tobacco Use Types Packs/Day Years Used Date Smoking Tobacco: Never Smokeless Tobacco: Never Alcohol Use Standard Drinks/Week Comments No 0 (1 standard drink = 0.6 oz pur e alcohol) none Sex and Gender Information Value Date Recorded Sex Assigned at Not on file Legal Sex Male 8:14 AM EST Gender Identity Not on file Sexual Orientation Not on file documented as of this encounter Progress Notes * Araceli Restrepo RN - 07/07/2024 2:06 PM EST Scheduled f/u for 07/11 at 9:45 with care team * Moises Brand - 07/07/2024 9:22 AM EST Hospital/ER follow up appointment needed Hospital patient was treated at: [facility], [facility] Was this only an ER visit or was the patient admitted to the hospital? ER Visit only Date of visit if ER visit only: 07/05/24 If patient was admitted what was the date of discharge? Reason/diagnosis for visit or stay: headache/elevated bp When was the patient told to follow up? imani Was visit or stay related to an injury? If yes, what was the date of injury (DOI)? No If yes, was the injury due to: Not 3rd republican related documented in this encounter Plan of Treatment Not on file documented as of this encounter Visit Diagnoses Not on filedocumented in this encounter Care Teams Screen Print Operator Relationship Specialty Start Date End Date Lawrence Gasca PA [address] [place] [id number] PCP - General Internal Medicine 04/22/24 documented as of this encounter
--- OUTSIDE RECORDS SUMMARY | 2024-07-18 12:28 | XMS_ITS | Encounter Summary ---
Author Organization [facility] Address [address] [place] [address] Care Team Providers Care Drive Thru Order Taker Name Role Phone Lawrence Gasca Primary Care Provider [phone] Reason for Visit * Reason Onset Date Comments Hypertension 07/04/2024 heachache 07/04/2024 Encounter Details Date Type Department Care Team (Late st Contact Info) Description 07/04/2024 Telephone Adult Medicine [facility] [address] [place] [address] Lawrence Gasca PA [address] [place], [place] [phone] Hypertension; heachache Social History Tobacco Use Types Packs/Day Years [...] Progress Notes * Araceli Restrepo RN - 07/04/2024 2:51 PM EST Spoke with the pt Advised if concerned about BP and symptoms he is having it would be ok to go to the ER. He is already headed to [place] Will call after for follow up * Serene Smith - 07/04/2024 2:07 PM EST Patient is calling back. Urgent care that he was sent to is currently closed. Please advise * Araceli Restrepo RN - 07/04/2024 1:17 PM EST DEUTSCH all week on/off WILLIAM check today was after lunch and takes meds in am BP was 198/95 Yesterday was 175/83. Bad migraine the other day and vomited X 2 Previously with squiggly lines in vision when he was in [place], NOT having changes in vision at this time. Offered appt for Sunday and he would like to be seen today. Advised [facility] [place] To call the office for follow up * Serene Smith - 07/04/2024 1:05 PM EST Patient call requires triage: Symptoms patient is presenting: patient has been having headaches all week long. PT checked his bp to day and it was 198/95 How long has patient had these symptoms?: 1 week For ALL patients calling to schedule any appointment (routine, sick visit, follow up, consult, etc.) in the outpatient setting please ask the following questions: Do you have fever of higher than 101, sore throat with difficulty swallowing or severe shortness ofbreath? no If YES to any of these above symptoms, send a message to triage and do not book. Red dot. If no, an audio or video visit should be booked. Have you had close contact with someone with Coronavirus in the last 14 days? no Have you traveled abroad? no Have you traveled recently to another state outside of [place], [place], [place], [place], [place], [place], [place]? no o If yes, did you quarantine for 14 days or have a negative covid test? no If yes to any of the above, patient is not to be scheduled in office until after 14 day quarantine or negative covid test. If pain or injury related was it due to an accident at work or from a motor vehicle accident? If yes, date of accident/Injury: No If yes, gather 3rd libertarian insurance information Third Green Party Information: not applicable PCP: BRANDO Tom Payor: [employer] PLAN / Plan: [employer] PAYETTE QHP / Product Type: *No Product type* / documented in this encounter Plan of Treatment Not on file documented as of this encounter Visit Diagnoses Not on filedocumented in this encounter Care Teams Drive Thru Order Taker Relationship Specialty Start Date End Date Lawrence Gasca PA [address] [place] [phone] PCP - General Internal Medicine 04/22/24 documented as of this encounter
--- NOTE | 2024-07-18 13:46 | MHC.AU.HA3 ---
Hearing Instrument Follow-Up- Binaural Date of Visit: 07/18/24 Right Ear: Make, Model, Color, Serial Number: Shamika CROS [id number] SN: [id number] Color: Sand Beige Neonatal Icu Coordinator Repair Warranty: 05/12/2026 Neonatal Icu Coordinator Loss and Damage Warranty: 05/12/2026 [facility] Service Plan: 05/31/2024 Battery Size: 13 Earmold/Dome/CShell/SlimTip:CROS Tip w/ size 2 wire SN: [id number] Warranty: 05/14/2023 Type of Wax Guard: N/A Dispensed By: [facility] Date of Fittin05/31/23 Left Ear: Make, Model, Color, Serial Number: Shamika Andrewseo [id number] SN: [id number] Color: Sand Beige Neonatal Icu Coordinator Repair Warranty: 05/15/2026 Neonatal Icu Coordinator Loss and Damage Warranty: 05/15/2026 [facility] Service Plan: 05/31/2024 Battery Size: 13 Earmold/Dome/CShell/SlimTip: cShell with size 2 wire/M manager process excellence SN: [id number] Warranty: 11/22/2023 Type of Wax Guard: Cerustop Dispensed By: [facility] Date of Fittin05/31/23 Follow-Up Summary: Seen for maintenance. Reports occasional hissing or crackle from aid. Cleaned aid and CROS and earmolds, replaced wax guard, ran through dehumidifier, vacuumed microphones. Listening check positive in office. Papito reports good sound quality. Papito was surprised more than one year had passed since fitting, caught off guard by fee for service. Reminded of [facility] fitting policy. Understands he will have to pay for services going forward. Recommendations: Recommendations: Hearing instrument follow-up or maintenance as needed. Diagnosis Code(s): Primary Diagnosis: H90.3 Bilateral Sensorineural Hearing Loss Signature: Provider: Sandrine Sanchez, [facility]
== END 2024-07-18 10:51 | disposition home or self-care (01) ==
LOC: HO.HAP 10:50
PROVIDERS: Visit Provider Physician Assistant Medical
DX: Z13.89 Encounter for screening for other disorder (principal)

== ENCOUNTER 2025-01-27 08:41 | Outpatient (REF) | payer SELFPAY ==
--- OUTSIDE RECORDS SUMMARY | 2025-01-27 09:42 | XMS_ITS | Clinical Summary ---
Author Organization [facility] [address] [place] [address] [place] [phone] Phone Care Team Providers Care Social Services Counselor Name Role Phone Lawrence Gasca Primary Care Provider [phone] [phone] Allergies No known active allergies Medications allopurinoL (ZYLOPRIM) 100 mg tablet Take 1 tablet by mouth once daily 90 tablet 3 08/04/2024 Active losartan (COZAAR) 25 mg tablet Take 1 tablet by mouth once daily 90 tablet 3 08/04/2024 Active omeprazole (PriLOSEC) [address] capsule Take 1 capsule by mouth once daily 90 capsule 3 08/04/2024 Active simvastatin (ZOCOR) 40 mg tablet TAKE 1 TABLET BY MOUTH AT BEDTIME 90 tablet 3 08/04/2024 Active Active Problems Problem Noted Date Diagnosed Date Erythrocytosis 07/17/2018 Overview (03/19/2024): Dr. 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 Erosive esophagitis 03/18/2014 Overview (03/19/2024): EGD and bx 03/17/2014. ? GERD; ? EOE---see path report. Dysplastic nevi 05/25/2011 Overview (03/19/2024): Dysplastic nevi 1/12 right lower back & middle of upper back (moderate atypia) Mixed hyperlipidemia 09/05/2007 Hearing loss 04/26/2007 Overview (03/19/2024): Chronic hearing loss on right, sudden hearing loss left, 04/2007 Hypertension 04/26/2007 Lung mass 04/26/2007 Overview (03/19/2024): 5-mm noncalcified right lower lobe nodule, others smaller nodules Renal cyst 04/26/2007 Overview (03/19/2024): 8 x 7 cm right renal cyst, CT, 01/31/2006 Retinal vein occlusion (CMS/HCC V28) 04/26/2007 Overview (03/19/2024): Right branch retinal vein occlusion, 12/2005 Encounters Date Type Department Care Team Description 01/26/2025 Telephone Adult Medicine [address] [phone] Lawrence Gasca PA from Last 3 Months Immunizations Name Administration [...] Surgery Date Site/Laterality Comments ESOPHAGOGASTRODUODENOSCOPY 03/17/2014 PROCEDURE: IN EGD TRANSORAL BIOPSY SINGLE/MULTIPLE; COMMENT: esophageal bx: Increased eosinophils, erosion, Poe's without dysplasia. Medical History Medical History Date Comments Hearing loss 04/26/2007 DX:Hearing loss; COMMENT: Chronic hearing loss on right, sudden hearing loss left, 04/2007 Hypertension 04/26/2007 DX:Hypertension Retinal vein occlusion (CMS/HCC V28) 04/26/2007 DX:Retinal vein occlusion; COMMENT: Right branch [...] care for your loved ones. For example, rn maternal child or elderly care for an older adult? [...] 75 07/09/2024 2:40 PM EST Temperature 36.4 C (97.5 F) 07/09/2024 2:40 PM EST Respiratory Rate 16 07/09/2024 2:40 PM EST Oxygen Saturation - - Inhaled Oxygen Concentration - - Weight 77.1 kg (170 lb) 07/09/2024 2:40 PM EST Height 167.6 cm (5' 6 ) 07/09/2024 2:40 PM EST Body Mass Index 27.44 07/09/2024 2:40 PM EST Plan of Treatment Upcoming Encounters Date Type Department Care Team (Late st Contact Info) Description 01/30/2025 8:00 AM EDT Office Visit Adult Medicine [facility] [address] [place] [address] Christianne Paiz PA [address] [place], [place] Health Maintenance Due Date Last Done Comments Zoster Vaccines (1 of 2) 12/13/1982 Pneumococcal Vaccine: 50+ Years (1 of 1 - PCV) 12/13/2013 HIV Screening 04/15/2022 Hepatitis C Screening 04/15/2022 Hypertension/CHF/CAD Annual BMP Blood Test 05/30/2024 05/30/2023 COVID-19 Vaccine ( - season) 2025 06/20/2021, 09/25/2020, 09/04/2020 Influenza Vaccine (#1) 2025 , 06/12/2023, 03/03/2022, Additional history exists Social Influencers of Health Screening 07/09/2025 07/09/2024 Colorectal Cancer Screening: FIT-DNA (Cologuard) 05/19/2027 05/19/2024 Cholesterol Screening (Lipid Panel) 05/30/2028 05/30/2023 DTaP,Tdap,and Td Vaccines (3 - Td or Tdap) 04/21/2031 04/21/2021, 10/04/2007 RSV Immunization Adult Patients (1 - 1-dose 75+ series) 12/13/2038 Depression Screening Completed 07/09/2024 HIB Vaccines Aged Out No longer eligi [...] age to complete this topic Meningococcal B Vaccine Aged Out No l onger eligible based on patient's age to complete this topic RSV Immunization Patients Under 20 months Aged Out No longer eligible based on patient's age to complete this topic Varicella Vaccines Aged Out No longer eligible based on patient's age to complete this topic Procedures Procedure Name Priority Date/Time Associated Diagnosis Comments LAB COLOGUARD COLON CANCER SCREEN Routine 05/19/2024 9:50 AM EST Routine general medical examination at a health care facility Diplopia Vertigo Screening for malignant neoplasm of colon Poe's esophagus with dysplasia Gout, unspecified cause, unspecified chronicity, unspecified site Primary hypertension Mixed hyperlipidemia HM ANNUAL BMP BLOOD TEST Routine 05/30/2023 LIPID PANEL Routine 05/30/2023 from Last 3 Months or Most Recently Relevant to Health Maintenance Results * Cologuard?? colon cancer screening (05/19/2024 9:50 AM EST) COLOGUARD Negative Negative [id number] Comment: NEGATIVE TEST RESULT. A negative Cologuard result indicates a low likelihood that a colorectal cancer (CRC) or advanced adenoma (adenomatous polyps with more advanced pre-malignant features) is present. The chance that a person with a negative Cologuard test has a colorectal cancer is less than 1 in 1500 (negative predictive value >99.9%) or has an advanced adenoma is less than 5.3% (negative predictive value 94.7%). These data are based on a prospective cross-sectional study of 10,000 individuals at average risk for colorectal cancer who were screened with both Cologuard and colonoscopy. (Veronique Houser al, N Engl J Med 2014;370(14):2661-2300) The normal value (reference range) for this assay is negative. COLOGUARD RE-SCREENING RECOMMENDATION: Periodic colorectal cancer screening is an important part of preventive healthcare for asymptomatic individuals at average risk for colorectal cancer. Following a negative Cologuard result, the [place] [employer] Society and U.S. Multi-Society Task Force screening guidelines recommend a Cologuard re-screening interval of 3 years. References: [place] [employer] Guideline for Colorectal Cancer Screening: https://www.cancer.org/cancer/qnlue-ngsqae-hdssne/dlmaoiwyi-llcbilohr-rptolmq/ac s-rec ommendations.html.; Alexandro GELLER, Sundeep CR, Deborah BRANTLEY, Colorectal Cancer Screening: Recommendations for Physicians and Patients from the U.S. Multi-Society Task Force on Colorectal Cancer Screening , Am J Gastroenterology 2017; 112:1197-7324. TEST DESCRIPTION: Composite algorithmic analysis of stool DNA-biomarkers with hemoglobin immunoassay. Quantitative values of individual biomarkers are not [...] (Veronique Houser al, N Engl J Med 2014;370(14):0231-2077.) Cologuard may produce a false negative or false positive result (no colorectal cancer or precancerous polyp present at colonoscopy follow up). A negative Cologuard test result does not guarantee the absence of CRC or advanced adenoma (pre-cancer). The current Cologuard screening interval is every 3 years. ([place] Cancer Society and U.S. Multi-Society Task Force). Cologuard performance data in a 10,000 patient pivotal study using colonoscopy as the reference method can be accessed at the following location: www.SeatGeek/results. Additional description of the Cologuard test process, warnings and precautions can be found at www.Toroleord.com. Stool 05/19/2024 9:50 AM EST 05/20/2024 11:01 AM EST Lawrence [facility] MOLECULAR DIAGNOSTICS ORDERABLES Final Result [facility] [address] [place] [address] [facility] [address] [facility] [place] [address] * Annual BMP Blood Test (05/30/2023) Annual BMP Blood Test abstracted Historical Provider HEALTH MAINTENANCE Final Result * Lipid panel (05/30/2023) LDL/HDL Ratio 3 0 - 4 Triglycerides 67 0 - 150 mg/dL Cholesterol 162 0 - 200 mg/dL HDL 53 >=40 mg/dL LDL Cholesterol 96 0 - 100 mg/dL Blood Venous blood specimen / Unknown Historical Provider LAB BLOOD ORDERABLES Patsy l Result from Last 3 Months or Most Recently Relevant to Health Maintenance Insurance [facility] Care Teams Social Services Counselor Relationship Specialty Start Date End Date Lawrence Gasca PA [address] [place] [id number] PCP - General Internal Medicine 04/22/24
--- OUTSIDE RECORDS SUMMARY | 2025-01-27 09:42 | XMS_ITS | Encounter Summary ---
Author Organization [facility] Address [address] [place] [address] Care Team Providers Care Golf Course Laborer Name Role Phone Lawrence Gasca Primary Care Provider [phone] [phone] Reason for Visit * Reason Onset Date Comments ED Follow-up 01/26/2025 Encounter Details Date Type Department Care Team ([facility] st Contact Info) Description 01/26/2025 Telephone Adult Medicine [address] [phone] Lawrence Gasca PA [address] [place] [phone] Social History Tobacco Use Types Packs/Day Years [...] for your loved ones. For example, child care coordinator or elderly care for an older adult? [...] Progress Notes * Araceli Restrepo RN - 01/26/2025 2:52 PM EDT Scheduled follow up for 01/30 at 7:45 am with care team and 30 min * Moises Brand - 01/26/2025 10:59 AM EDT Hospital/ER follow up appointment needed Hospital patient was treated at: [facility], [facility] Was this only an ER visit or was the patient admitted to the hospital? ER Visit only Date of visit if ER visit only: 01/22/25 If patient was admitted what was the date of discharge? N/a Reason/diagnosis for visit or stay: fall/broken rib rt side When was the patient told to follow up? N/a Was visit or stay related to an injury? If yes, what was the date of injury (DOI)? Yes. 01/22/25 If yes, was the injury due to: Worker's Comp - does not currently have w/c claim info but states hewill obtain it for appt documented in this encounter Plan of Treatment Upcoming Encounters Date Type Department Care Team (Late st Contact Info) Description 01/30/2025 8:00 AM EDT Office Visit Adult Medicine [facility] [address] [place] [address] Christianne Paiz PA [address] [place], [place] documented as of this encounter Visit Diagnoses Not on filedocumented in this encounter Additional Health Concerns Assessment Noted Time PHQ-9 Depression Total Score: 0 07/10/19 25 2:41 PM EST documented as of this encounter Care Teams Golf Course Laborer Relationship Specialty Start Date End Date Lawrence Gasca PA [address] [place] [address] PCP - General Internal Medicine 04/22/24 documented as of this encounter
--- OUTSIDE RECORDS SUMMARY | 2025-01-27 09:42 | XMS_ITS ---
Author Name [facility] Organization Unknown Care Team Organization Name Specialty Phone Email Start Date End Da sofia [facility] Lawrence Gonzalez Primary Care 09/11/2022
== END 2025-01-27 08:42 | disposition home or self-care (01) ==
LOC: HO.HAP 08:41
PROVIDERS: Visit Provider Physician Assistant Medical
DX: Z13.89 Encounter for screening for other disorder (principal)

== ENCOUNTER 2025-02-06 13:13 | Outpatient (REF) | payer SELFPAY ==
--- OUTSIDE RECORDS SUMMARY | 2025-02-06 13:33 | XMS_ITS | Clinical Summary ---
Author Organization [facility] [address] [place] [address] Address [address] [place] [address] Phone Care Team Providers Care Customer Experience Leader Name Role Phone Lawrence Gasca Primary Care Provider [phone] [phone] Allergies No known active allergies Medications allopurinoL [...] AT BEDTIME 90 tablet 3 08/04/2024 Active oxyCODONE (OXY-IR) 5 mg immediate release capsule Take 1 capsule (5 mg total) by mouth every 8 (eight) hours if needed for severe pain. Max Daily Amount: 15 mg 10 capsule 01/30/2025 Active Active Problems Problem Noted Date Diagnosed [...] Encounters Date Type Department Care Team Description 01/30/2025 8:00 AM EDT Office Visit Adult Medicine [address] [phone] Christianne Paiz PA Closed fracture of one rib of right side with routine healing, subsequent encounter (Primary Dx); Primary hypertension; Pulmonary nodules 01/26/2025 Telephone Adult Medicine [address] [phone] Lawrence Gasca PA from Last 3 Months Immunizations Immunization Administration Dates Next Due Influenza Quadravalent, MDCK , 0.5ml, preservative free (Flucelvax) 6mo and older 06/12/2023,03/03/2022,04/21/2021,2019,05/10/2018 Influenza trivalent, 0.5mL, preservative free (Fluarix; FluLaval; Fluzone) ages 6mo and older (Afluria) 3 years and older 02/18/2016 Influenza trivalent, MDCK, 0 .5mL, preservative free (Flucelvax) 6mo and older 07/09/2024 Td Tetanus diptheria (Tdvax) 7yo and older 04/21/2021,10/04/2007 Surgical History Surgery Date Site/Laterality Comments ESOPHAGOGASTRODUODENOSCOPY 03/17/2014 PROCEDURE: MS EGD TRANSORAL BIOPSY SINGLE/MULTIPLE; COMMENT: esophageal bx: Increased eosinophils, erosion, Poe's without dysplasia. Medical History Medical History Date Comments Hearing loss 04/26/2007 DX:Hearing loss; COMMENT: Chronic hearing loss on right, sudden hearing loss left, 04/2007 Hypertension 04/26/2007 DX:Hypertension Retinal vein occlusion ([facility] V28) 04/26/2007 DX:Retinal vein occlusion; COMMENT: Right [...] care for your loved ones. For example, residential child care counselor or elderly care for an older adult? [...] Date Recorded What is your living situation? Unrecognized valu e 07/09/2024 Sex and Gender Information Value Date Recorded Sex Assigned at Not on file Legal Sex Male 8:14 AM EST Gender Identity Not on file Sexual Orientation Not on file Obstetrics History Last Filed Vital Signs Vital Sign Reading Time Taken Comments Blood Pressure 150/86 01/30/2025 8:30 AM EDT Pulse 71 01/30/2025 8:05 AM EDT Temperature 36.1 C (96.9 F) 01/30/2025 8:05 AM EDT Respiratory Rate 15 01/30/2025 8:05 AM EDT Oxygen Saturation 96% 01/30/2025 8:30 AM EDT Inhaled Oxygen Concentration - - Weight 78.8 kg (173 lb 12.8 oz) 01/30/2025 8:05 AM EDT Height 167.6 cm (5' 6 ) 01/30/2025 8:05 AM EDT Body Mass Index 28.05 01/30/2025 8:05 AM EDT Plan of Treatment Upcoming Encounters Date Type Department Care Team (Late st Contact Info) Description 02/13/2025 10:00 AM EDT Office Visit Adult Medicine [facility] [address], [place] [phone] Christianne Paiz PA [address], [place] Health Maintenance Due Date Last Done Comments Zoster Vaccines (1 of 2) 12/13/1982 Pneumococcal Vaccine: 50+ Years (1 of 1 - PCV) 12/13/2013 HIV Screening 04/15/2022 Hepatitis C Screening 04/15/2022 Hypertension/CHF/CAD Annual BMP Blood Test 05/30/2024 05/30/2023 COVID-19 Vaccine ( season) 2025 06/20/2021, 09/25/2020, 09/04/2020 Influenza Vaccine (#1) 2025 , 06/12/2023, 03/03/2022, Additional history exists Social Influencers of Health Screening 07/09/2025 07/09/2024 Colorectal Cancer Screening: FIT-DNA (Cologuard) 05/19/2027 05/19/2024, 05/19/2024, 05/19/2024 Cholesterol Screening (Lipid Panel) 05/30/2028 05/30/2023 DTaP,Tdap,and Td Vaccines (3 - Td or Tdap) 04/21/2031 04/21/2021, 10/04/2007 RSV Immunization Adult Patients (1 - 1-dose 75+ series) 12/13/2038 Depression Screening Completed 01/29/2025 HIB Vaccines Aged Out No longer eligi [...] 9:50 AM EST) COLOGUARD Negative Negative [facility] Comment: NEGATIVE TEST RESULT. A negative [...] (Veronique Houser al, N Engl J Med 2014;370(14):5306-6303) The normal value (reference range) for this assay is negative. COLOGUARD RE-SCREENING RECOMMENDATION: Periodic colorectal cancer screening is an important part of preventive healthcare for asymptomatic individuals at average risk for colorectal cancer. Following a negative Cologuard result, the [place] Cancer Society and U.S. Multi-Society Task Force screening guidelines recommend a Cologuard re-screening interval of 3 years. References: [place] [employer] Guideline for Colorectal Cancer Screening: https://www.cancer.org/cancer/kuqpu-qxmyma-ehqwld/wgtcqhzib-cnfrvoafd-hfbrkys/ac s-rec ommendations.html.; Alexandro DK, Sundeep NEWMAN, Deborah DavisK, Colorectal Cancer Screening: Recommendations for Physicians and Patients from the U.S. Multi-Society Task Force on Colorectal Cancer Screening , Am J Gastroenterology 2017; 112:1202-2029. TEST DESCRIPTION: Composite algorithmic analysis of stool [...] (Veronique Houser al, N Engl J Med 2014;370(14):7545-7183.) Cologuard may produce a false negative or false positive result (no colorectal cancer or precancerous polyp present at colonoscopy follow up). A negative Cologuard test result does not guarantee the absence of CRC or advanced adenoma (pre-cancer). The current Cologuard screening interval is every 3 years. ([place] Cancer Society and U.S. Multi-Society Task Force). Cologuard performance data in a 10,000 patient pivotal study using colonoscopy as the reference method can be accessed at the following location: www.Everypost/results. Additional description of the Cologuard test process, warnings and precautions can be found at www.colEllierd.com. Stool 05/19/2024 9:50 AM EST 05/20/2024 11:01 AM EST Lawrence [facility] MOLECULAR DIAGNOSTICS ORDERABLES Final Result Performing Organization Address City/State/[facility] Co de Phone Number [employer] [place] [phone] [place] [address] * Annual BMP Blood Test (05/30/2023) Annual BMP Blood Test abstracted Historical Provider MD HEALTH MAINTENANCE Final Result * Lipid panel (05/30/2023) LDL/HDL Ratio 3 0 - 4 Triglycerides 67 0 - 150 mg/dL Cholesterol 162 0 - 200 mg/dL HDL 53 >=40 mg/dL LDL Cholesterol 96 0 - 100 mg/dL Blood Venous blood specimen / Unknown Historical Provider LAB BLOOD ORDERABLES Patsy l Result from Last 3 Months or Most Recently Relevant to Health Maintenance Insurance [employer] [place] [id number] [facility] [employer] WC GENERIC Care Teams Customer Experience Leader Relationship Specialty Start Date End Date Lawrence Gasca PA [address] [place] [address] PCP - General Internal Medicine 04/22/24
== END 2025-02-06 13:14 | disposition home or self-care (01) ==
LOC: HO.HAP 13:13
PROVIDERS: Visit Provider Internal Medicine Endocrinology, Diabetes & Metabolism
DX: Z46.1 Encounter for fitting and adjustment of hearing aid (principal); H90.3 Sensorineural hearing loss, bilateral
CPT/HCPCS: 92593